=== PATIENT | male | born 1975 | race Caucasian/White ===

== ENCOUNTER 2017-04-25 15:05 | Inpatient (IN) | payer OTHER ==
[~2017-04-25] VITALS: Ht 182.9 cm; Wt 85.7 kg
[2017-04-25] MEDS ORDERED: SODIUM CHLORIDE 0.9% 1,000 ML IV ONE (15:16)
[2017-04-25] MEDS ORDERED: SODIUM CHLORIDE FLUSH 10ML SYR IVF ONE (15:30)
[2017-04-25 17:13] LABS: HEMATOCRIT 40.4 % (39.2-51.8); HEMOGLOBIN 13.5 g/dL (13.7-18.0); WHITE BLOOD COUNT 10.2 x10^3/uL (3.4-10)
[2017-04-25 17:18] LABS: ASPARTATE AMINO TRANSFERASE 8 U/L (15-37); BLOOD UREA NITROGEN 18 mg/dL (7-18)
[2017-04-25] MEDS ORDERED: ONDANSETRON 2MG/ML, 2ML IVPush PRN (18:30)
[2017-04-25] MEDS ORDERED: ENALAPRILAT 1.25 MG/ML, 2ML IVPush PRN (18:30)
[2017-04-25] MEDS ORDERED: hydrALAzine 20 MG/ML, 1ML IVPush PRN (18:30)
[2017-04-25 20:58] VITALS: BP 132/72
[2017-04-25] MEDS: D5%-0.9% NACL+KCL 20MEQ 1,000 ML IV SCH (21:32)
[2017-04-25] MEDS: PIPERACILLIN/TAZO/PMX 3.375GM 50 ML IV SCH (21:32)
[2017-04-25] MEDS: morphine SULFATE 10 MG/ML, 1ML IVPush PRN ×2 (22:05→23:07)
[2017-04-26] MEDS: OXYcodone IR 5MG TABLET PO PRN (00:15)
[2017-04-26 00:22] VITALS: BP 155/66
[2017-04-26] MEDS ORDERED: KETOROLAC 30 MG/1 ML ONE (00:40)
[2017-04-26] MEDS ORDERED: PROMETHAZINE 25 MG/ML, 1ML ONE (00:41)
[2017-04-26] MEDS: KETOROLAC 30 MG/1 ML IV PRN ×3 (00:48→21:15)
[2017-04-26] MEDS ORDERED: PROMETHAZINE 25 MG/ML, 1ML IM PRN (01:00)
[2017-04-26] MEDS: PIPERACILLIN/TAZO/PMX 3.375GM 50 ML IV SCH ×4 (03:00→21:15)
[2017-04-26 04:39] LABS: HEMATOCRIT 40.4 % (39.2-51.8); HEMOGLOBIN 13.4 g/dL (13.7-18.0)
[2017-04-26 04:46] LABS: ASPARTATE AMINO TRANSFERASE 15 U/L (15-37); BLOOD UREA NITROGEN 16 mg/dL (7-18)
[2017-04-26] MEDS: D5%-0.9% NACL+KCL 20MEQ 1,000 ML IV SCH ×2 (06:09→18:00)
[2017-04-26] MEDS: morphine SULFATE 10 MG/ML, 1ML IVPush PRN (06:09)
[2017-04-26 08:06] VITALS: BP 96/60
[2017-04-26 13:16] VITALS: BP 97/58
[2017-04-26 18:59] VITALS: BP 125/69
[2017-04-26 19:58] LABS: OCCBLD OBC PASS
[2017-04-27] MEDS: PIPERACILLIN/TAZO/PMX 3.375GM 50 ML IV SCH ×2 (03:24→09:47)
[2017-04-27] MEDS: KETOROLAC 30 MG/1 ML IV PRN (03:27)
[2017-04-27 03:38] VITALS: BP 96/58
[2017-04-27 04:39] LABS: HEMATOCRIT 38.9 % (39.2-51.8); HEMOGLOBIN 12.8 g/dL (13.7-18.0); WHITE BLOOD COUNT 6.7 x10^3/uL (3.4-10)
[2017-04-27 04:59] LABS: BLOOD UREA NITROGEN 22 mg/dL (7-18)
[2017-04-27] MEDS ORDERED: MIDAZOLAM 1 MG/ML, 2ML ONE (06:46)
[2017-04-27] MEDS ORDERED: FENTANYL PF 100 MCG/2ML ONE ×3 (06:46→08:26)
[2017-04-27] MEDS ORDERED: ROCURONIUM 10 MG/ML ONE (07:22)
[2017-04-27] MEDS ORDERED: PROPOFOL 10 MG/ML, 20ML ONE (07:22)
[2017-04-27] MEDS ORDERED: PROMETHAZINE 25 MG/ML, 1ML IV PRN (07:30)
[2017-04-27] MEDS ORDERED: OXYcodone 5 MG/5 ML ORAL.SOL UDC PO PRN (07:30)
[2017-04-27] MEDS ORDERED: ONDANSETRON 2MG/ML, 2ML IVPush PRN (07:30)
[2017-04-27] MEDS ORDERED: LABETALOL 5MG/ML, 20ML IV PRN (07:30)
[2017-04-27] MEDS ORDERED: HYDROmorphone 1 MG/ML, 1ML IV PRN (07:30)
[2017-04-27] MEDS ORDERED: hydrALAzine 20 MG/ML, 1ML IV PRN (07:30)
[2017-04-27] MEDS ORDERED: HYDROmorphone 1 MG/ML, 1ML ONE ×2 (08:26→08:58)
[2017-04-27] MEDS: FENTANYL PF 100 MCG/2ML IV PRN ×2 (08:30→08:36)
[2017-04-27] MEDS: HYDROmorphone 1 MG/ML, 1ML IV PRN ×3 (08:40→09:52)
[2017-04-27 09:40] VITALS: BP 122/70
[2017-04-27] MEDS: morphine SULFATE 10 MG/ML, 1ML IVPush PRN (09:47)
[2017-04-27] MEDS ORDERED: LORazepam 2 MG/ML, 1ML IV PRN (10:00)
[2017-04-27] MEDS ORDERED: LORazepam 1MG TABLET PO PRN (10:00)
[2017-04-27] MEDS ORDERED: ONDANSETRON 2MG/ML, 2ML IV PRN ×2 (10:30)
[2017-04-27] MEDS: morphine SULFATE 10 MG/ML, 1ML IV PRN ×8 (10:41→23:43)
[2017-04-27] MEDS: METRONIDAZOLE PMX 500MG/100ML 100 ML IVPB SCH ×2 (10:42→19:52)
[2017-04-27] MEDS: POTASSIUM CHLORIDE 20 MEQ in D5%-0.45% NACL 1,000 ML IV SCH ×2 (10:42→20:55)
[2017-04-27 14:11] VITALS: BP 118/73
[2017-04-27 17:00] LABS: ASPARTATE AMINO TRANSFERASE 16 U/L (15-37); BLOOD UREA NITROGEN 20 mg/dL (7-18)
[2017-04-27] MEDS: CEFOTETAN PMX 1GM/50ML 50 ML IVPB SCH (17:57)
[2017-04-27 18:40] VITALS: BP 132/75
[2017-04-28 01:28] VITALS: BP 123/75
[2017-04-28] MEDS: morphine SULFATE 10 MG/ML, 1ML IV PRN ×4 (02:03→08:58)
[2017-04-28] MEDS: POTASSIUM CHLORIDE 20 MEQ in D5%-0.45% NACL 1,000 ML IV SCH ×2 (04:51→18:36)
[2017-04-28] MEDS: CEFOTETAN PMX 1GM/50ML 50 ML IVPB SCH (04:59)
[2017-04-28 05:09] LABS: HEMATOCRIT 37.5 % (39.2-51.8); HEMOGLOBIN 12.4 g/dL (13.7-18.0); WHITE BLOOD COUNT 7.4 x10^3/uL (3.4-10)
[2017-04-28] MEDS: METRONIDAZOLE PMX 500MG/100ML 100 ML IV SCH ×3 (05:51→21:43)
[2017-04-28 08:30] VITALS: BP 123/82
[2017-04-28] MEDS: ENOXAPARIN 40 MG/0.4 ML SQ SCH (08:58)
[2017-04-28] MEDS ORDERED: ENOXAPARIN 40 MG/0.4 ML SQ SCH (09:00)
[2017-04-28] MEDS ORDERED: SODIUM CHLORIDE 0.9%, 500ML IVBOLUS ONE (10:00)
[2017-04-28] MEDS: HYDROmorphone 1 MG/ML, 1ML IV PRN ×5 (11:21→21:44)
[2017-04-28 14:15] VITALS: BP 116/77
[2017-04-28] MEDS: CEFOTETAN PMX 1GM/50ML 50 ML IV SCH (17:32)
[2017-04-28 20:02] VITALS: BP 119/75
[2017-04-29 02:28] VITALS: BP 126/79
[2017-04-29] MEDS: HYDROmorphone 1 MG/ML, 1ML IV PRN ×8 (02:39→21:02)
[2017-04-29] MEDS ORDERED: NITROGLYCERIN/D5W PMX 250 ML IV PRN (03:30)
[2017-04-29] MEDS: POTASSIUM CHLORIDE 20 MEQ in D5%-0.45% NACL 1,000 ML IV SCH ×3 (03:54→23:22)
[2017-04-29] MEDS: CEFOTETAN PMX 1GM/50ML 50 ML IV SCH ×2 (05:22→17:43)
[2017-04-29 05:36] LABS: HEMATOCRIT 36.6 % (39.2-51.8); HEMOGLOBIN 12.3 g/dL (13.7-18.0); WHITE BLOOD COUNT 6.1 x10^3/uL (3.4-10)
[2017-04-29 05:47] LABS: BLOOD UREA NITROGEN 11 mg/dL (7-18)
[2017-04-29 05:51] LABS: ASPARTATE AMINO TRANSFERASE 13 U/L (15-37)
[2017-04-29] MEDS: METRONIDAZOLE PMX 500MG/100ML 100 ML IV SCH ×3 (06:09→21:02)
[2017-04-29 07:27] VITALS: BP 129/81
[2017-04-29] MEDS: ENOXAPARIN 40 MG/0.4 ML SQ SCH (07:49)
[2017-04-29] MEDS: PANTOPRAZOLE 40 MG IV IVPush SCH (09:59)
[2017-04-29 14:17] LABS: HEMATOCRIT 38.4 % (39.2-51.8); HEMOGLOBIN 12.9 g/dL (13.7-18.0)
[2017-04-29 15:20] VITALS: BP 107/69
[2017-04-29 20:38] VITALS: BP 113/73
[2017-04-30] MEDS: CEFOTETAN PMX 1GM/50ML 50 ML IV SCH ×2 (05:00→17:47)
[2017-04-30] MEDS: METRONIDAZOLE PMX 500MG/100ML 100 ML IV SCH ×3 (06:00→21:55)
[2017-04-30 08:17] LABS: ASPARTATE AMINO TRANSFERASE 10 U/L (15-37); BLOOD UREA NITROGEN 8 mg/dL (7-18)
[2017-04-30 08:19] LABS: HEMOGLOBIN 13.3 g/dL (13.7-18.0); WHITE BLOOD COUNT 6.1 x10^3/uL (3.4-10)
[2017-04-30] MEDS: ENOXAPARIN 40 MG/0.4 ML SQ SCH (09:17)
[2017-04-30] MEDS: HYDROmorphone 1 MG/ML, 1ML IV PRN ×4 (09:17→21:55)
[2017-04-30] MEDS: PANTOPRAZOLE 40 MG IV IVPush SCH (09:17)
[2017-04-30] MEDS: POTASSIUM CHLORIDE 20 MEQ in D5%-0.45% NACL 1,000 ML IV SCH ×2 (09:45→17:58)
[2017-04-30 11:06] LABS: CYCLOSPORA SMEAR STOOL None seen (None seen)
[2017-04-30 13:31] VITALS: BP 102/67
[2017-04-30 20:27] VITALS: BP 119/75
[2017-05-01 01:40] VITALS: BP 108/71
[2017-05-01] MEDS: HYDROmorphone 1 MG/ML, 1ML IV PRN ×2 (01:52→05:55)
[2017-05-01] MEDS: POTASSIUM CHLORIDE 20 MEQ in D5%-0.45% NACL 1,000 ML IV SCH ×2 (04:29→12:35)
[2017-05-01] MEDS: CEFOTETAN PMX 1GM/50ML 50 ML IV SCH ×2 (04:29→16:45)
[2017-05-01] MEDS: METRONIDAZOLE PMX 500MG/100ML 100 ML IV SCH ×2 (05:56→13:47)
[2017-05-01] MEDS: ENOXAPARIN 40 MG/0.4 ML SQ SCH (08:01)
[2017-05-01] MEDS: PANTOPRAZOLE 40 MG IV IVPush SCH (08:01)
[2017-05-01 08:20] VITALS: BP 133/69
[2017-05-01] MEDS: OXYcodone IR 5MG TABLET PO PRN ×2 (10:53→15:33)
[2017-05-01] MEDS: BISACODYL 5 MG EC TABLET PO PRN (10:56)
[2017-05-01 14:19] VITALS: BP 133/83
[2017-05-01 19:50] VITALS: BP 110/65
[2017-05-01] MEDS: APAP/CODEINE 300/30MG TABLET PO PRN (19:59)
[2017-05-01] MEDS: AMOXICILLIN/CLAV 875-125MG TABLET PO SCH (20:00)
[2017-05-02 02:20] VITALS: BP 115/74
[2017-05-02] MEDS: BISACODYL 5 MG EC TABLET PO PRN (07:58)
[2017-05-02] MEDS: AMOXICILLIN/CLAV 875-125MG TABLET PO SCH (07:58)
[2017-05-02] MEDS: ENOXAPARIN 40 MG/0.4 ML SQ SCH (07:58)
[2017-05-02] MEDS: APAP/CODEINE 300/30MG TABLET PO PRN ×2 (07:58→11:46)
[2017-05-02 08:30] VITALS: BP 106/64
[2017-05-02] MEDS ORDERED: AMOX1TAB12 PO (09:30)
[2017-05-02] MEDS ORDERED: BISA5TAB5 PO (09:30)
[2017-05-02] MEDS ORDERED: ACET1TAB64 PO (09:30)
== END 2017-05-02 11:53 | disposition home or self-care (01) | DRG 329 ==
LOC: EDBD 15:05 → ED 17:37 → EDIP 17:38 → ED 17:41 → 3NW 20:46 → 5SO 04-28 06:52 → 4NOR 05-01 02:30
PROVIDERS: ADMIT Internal Medicine; ATTEND Internal Medicine
PROC: 0DTB0ZZ Resection of Ileum, Open Approach (ICD-10-PCS; principal; 2017-04-27 07:30)
DX: K50.012 Crohn's disease of small intestine with intestinal obstruction (principal); K63.1 Perforation of intestine (nontraumatic); E43 Unspecified severe protein-calorie malnutrition; K56.60 Unspecified intestinal obstruction; K35.3 Acute appendicitis with localized peritonitis; E44.0 Moderate protein-calorie malnutrition; F17.200 Nicotine dependence, unspecified, uncomplicated; J44.9 Chronic obstructive pulmonary disease, unspecified; K66.0 Peritoneal adhesions (postprocedural) (postinfection); K76.9 Liver disease, unspecified; N20.0 Calculus of kidney; Z65.3 Problems related to other legal circumstances; Z68.25 Body mass index [BMI] 25.0-25.9, adult
CPT/HCPCS: 36415; 74177; 80048; 80053; 80061; 81001; 82272; 83036; 83735; 84100; 84439; 84443; 85014; 85018; 85025; 85651; 87015; 87040; 87046; 87070; 87075; 87086; 87147; 87205; 87206; 87324; 87328; 87329; 87899; 88307; 89055; 99285; J1170; J1650; J1885; J2250; J2405; J2543; J2550; J2704; J3010; J3480; C9113; J2060; J2270; J7030; J7040; S0074